=== PATIENT | female | born 1990 | race Caucasian/White ===

== ENCOUNTER → 2017-11-18 | Outpatient (CLI) | payer BC ==
[~2017-11-18] MED LIST: HUMALOG100 UNIT/2 SC; LEVOTHYROXINE50 MCG PO; TOPIRAMATE25 MG PO
== END | disposition home or self-care (01) ==
LOC: CDC 14:32
DX: O24.019 Pre-existing type 1 diabetes mellitus, in pregnancy, unspecified trimester (principal); E10.65 Type 1 diabetes mellitus with hyperglycemia; I49.8 Other specified cardiac arrhythmias
CPT/HCPCS: 93000

== ENCOUNTER 2017-11-24 15:26 | Emergency (ER) | payer BC ==
[~2017-11-24] VITALS: Ht 152.4 cm; Wt 72.3 kg
[2017-11-24 16:33] LABS: APPEARANCE CLEAR ((CLEAR)); BILIRUBIN NEGATIVE; BLOOD NEGATIVE; COLOR STRAW ((YELLOW)); GLUCOSE (STRIP) >=500; KETONES NEGATIVE; LEUKOCYTES NEGATIVE; NITRITE NEGATIVE; PROTEIN (STRIP) NEGATIVE; UCUL ADDED? NO; UROBILINOGEN 0.2 MG/DL (0.2-1.0)
[2017-11-24 16:45] LABS: HEMATOCRIT 39.3 % (36.0-46.0); HEMOGLOBIN 13.7 G/DL (11.9-15.5); MCH 33.1 PG (29.0-34.0); MCHC 34.9 G/DL (30.0-36.0); MCV 94.9 FL (83-99); PLATELET COUNT 275 K/uL (156-360); RBC DIS.WIDTH-CV 12.3 % (11.8-14.6); RBC DIS.WIDTH-SD 43.1 % (39-53); RED BLOOD COUNT 4.14 M/uL (3.80-5.20); WHITE BLOOD COUNT 12.5 K/uL (4.1-10.2)
[2017-11-24 16:55] LABS: ALBUMIN 3.4 g/dL (3.2-4.8); CHLORIDE 105 mEq/L (99-109); POTASSIUM 3.8 mEq/L (3.7-5.4); SODIUM 137 mEq/L (136-147)
[2017-11-24 16:58] LABS: GLUCOSE 73 mg/dL (70-99); TOTAL PROTEIN 6.2 g/dL (6.4-8.3)
[2017-11-24 17:00] LABS: TOTAL BILIRUBIN 0.2 mg/dL (0.0-1.0)
[2017-11-24 17:01] LABS: ALKALINE PHOSPHATASE 43 IU/L (3-129); CREATININE 0.6 mg/dL (0.6-1.3); GFR ESTIMATE (CALCULATED) > 59 mL/min/
[2017-11-24 17:02] LABS: UREA NITROGEN (BUN) 14 mg/dL (9-23)
[2017-11-24 17:03] LABS: AST (GOT) 13 IU/L (2-34)
[2017-11-24 17:04] LABS: ALT (GPT) 12 IU/L (3-49)
[2017-11-24] MEDS ORDERED: COMPRESSION TH1 EACH MC (18:00)
[2017-11-24 18:11] VITALS: BP 121/81
== END 2017-11-24 18:12 | disposition home or self-care (01) ==
LOC: EME 15:26
PROVIDERS: Nurse Practitioner Family
DX: O26.892 Other specified pregnancy related conditions, second trimester (principal); R22.43 Localized swelling, mass and lump, lower limb, bilateral; O99.282 Endocrine, nutritional and metabolic diseases complicating pregnancy, second trimester; E03.9 Hypothyroidism, unspecified; Z3A.17 17 weeks gestation of pregnancy; Z79.4 Long term (current) use of insulin; Z87.442 Personal history of urinary calculi
CPT/HCPCS: 80053; 81003; 85027; 99281; 99284